=== PATIENT | female | born 1935 | race Caucasian/White ===

== ENCOUNTER → 2016-11-28 | Outpatient (CLI) | payer MEDICARE ==
--- NOTE | 2016-11-28 15:24 | Diagnostic Imaging Report ---
EXAMINATION: PA and lateral views of the chest. INDICATION: Weakness. COMPARISON: 11/23/2016. FINDINGS: The lungs appear clear. The heart size is in the upper limits of normal. No effusion or pneumothorax. The mediastinum and kenneth appear unremarkable. IMPRESSION: Borderline cardiac size. No acute process. Dictated by: Dictated on workstation # [id number]
== END ==
LOC: RAD 14:51
PROVIDERS: ATTEND Specialist
DX: R53.1 Weakness (principal)
CPT/HCPCS: 71020

== ENCOUNTER 2017-04-18 13:34 | Outpatient (RCR) | payer MEDICARE | END 2017-04-19 | disposition home or self-care (01) | PROVIDERS: ATTEND Specialist | DX: M54.9 Dorsalgia, unspecified (principal) ==

== ENCOUNTER 2017-05-05 13:40 | Outpatient (RCR) | payer MEDICARE | END 2017-05-05 14:52 | disposition home or self-care (01) | PROVIDERS: ATTEND Specialist | DX: M54.9 Dorsalgia, unspecified (principal) ==

== ENCOUNTER 2018-10-15 13:45 | Outpatient (RCR) | payer MEDICARE | END 2018-10-22 | disposition home or self-care (01) | PROVIDERS: ATTEND Family Medicine | DX: M25.551 Pain in right hip (principal); M25.552 Pain in left hip; M25.671 Stiffness of right ankle, not elsewhere classified; M25.672 Stiffness of left ankle, not elsewhere classified; E03.9 Hypothyroidism, unspecified; I10 Essential (primary) hypertension ==

== ENCOUNTER → 2018-11-23 | Outpatient (CLI) | payer MEDICARE ==
--- NOTE | 2018-11-23 16:47 | Diagnostic Imaging Report ---
INDICATION: Headache. Dizziness. Hypertension. TECHNIQUE: Routine non contrast-enhanced axial images were obtained from the skull base to the vertex. Auto Exposure Controls were utilized during the CT exam to meet ALARA standards for radiation dose reduction COMPARISON: None. FINDINGS: The ventricles and cortical sulci are diffusely prominent, compatible with age-related volume loss. There are confluent areas of abnormal, low attenuation in the periventricular white matter. This is consistent with small vessel ischemic changes; age-indeterminate. There is no prior study available for comparison. There is no midline shift or mass effect. No acute intra-axial hemorrhage is seen. There are no abnormal areas of increased or decreased density to suggest acute hemorrhage or edema. No extra-axial masses or collections are present. The bony calvarium is intact. The visualized paranasal sinuses are unremarkable. The mastoid air cells are clear. IMPRESSION: 1. No acute intracranial abnormality. No CT evidence of mass, acute infarct or intracranial hemorrhage. 2. Small vessel ischemic changes in the periventricular and subcortical white matter; likely chronic. Dictated by: Dictated on workstation # [id number]
== END ==
LOC: RAD 16:18
PROVIDERS: ATTEND Nurse Practitioner Family
DX: S00.93XA Contusion of unspecified part of head, initial encounter (principal); I67.82 Cerebral ischemia; R90.82 White matter disease, unspecified; E03.9 Hypothyroidism, unspecified; I10 Essential (primary) hypertension; H10.45 Other chronic allergic conjunctivitis; M32.9 Systemic lupus erythematosus, unspecified; H46.9 Unspecified optic neuritis; M19.90 Unspecified osteoarthritis, unspecified site
CPT/HCPCS: 70450

== ENCOUNTER 2018-12-04 13:00 | Outpatient (RCR) | payer MEDICARE | END 2018-12-04 16:19 | disposition home or self-care (01) | PROVIDERS: ATTEND Family Medicine | DX: M25.551 Pain in right hip (principal); M25.552 Pain in left hip; M25.671 Stiffness of right ankle, not elsewhere classified; M25.672 Stiffness of left ankle, not elsewhere classified; E03.9 Hypothyroidism, unspecified; I10 Essential (primary) hypertension ==

== ENCOUNTER 2019-05-29 15:21 | Outpatient (RCR) | payer MEDICARE ==
[2019-06-25] MEDS ORDERED: ALPR0.5T PO (15:58)
[2019-06-25] MEDS ORDERED: LOSA1TAB26 PO (15:58)
[2019-06-25] MEDS ORDERED: ASCO500C17 PO (15:58)
[2019-06-25] MEDS ORDERED: ASPI-808 PO (15:58)
[2019-06-25] MEDS ORDERED: HYDR200T46 PO (15:58)
[2019-06-25] MEDS ORDERED: CHOL200059 PO (15:58)
[2019-06-25] MEDS ORDERED: OMEP20TA7 PO (15:58)
[2019-06-25] MEDS ORDERED: UBID100C17 PO (15:58)
== END 2019-08-27 | disposition home or self-care (01) ==
LOC: LAB 15:21
PROVIDERS: ATTEND Surgery
DX: Z01.89 Encounter for other specified special examinations (principal)
CPT/HCPCS: 82274; 87015; 87045; 87046; 87324; 87328; 87329; 87449; 87899

== ENCOUNTER 2019-06-25 05:53 | Outpatient (CLI) | payer MEDICARE ==
[~2019-06-25] VITALS: Ht 152.4 cm; Wt 81.4 kg
[2019-06-25] MEDS ORDERED: ALPR0.5T PO (15:58)
[2019-06-25] MEDS ORDERED: LOSA1TAB26 PO (15:58)
[2019-06-25] MEDS ORDERED: CHOL200059 PO (15:58)
[2019-06-25] MEDS ORDERED: UBID100C17 PO (15:58)
[2019-06-25] MEDS ORDERED: HYDR200T46 PO (15:58)
[2019-06-25] MEDS ORDERED: OMEP20TA7 PO (15:58)
[2019-06-25] MEDS ORDERED: ASCO500C17 PO (15:58)
[2019-06-25] MEDS ORDERED: ASPI-808 PO (15:58)
== END 2019-06-25 16:02 | disposition home or self-care (01) ==
LOC: PREOP 05:53
PROVIDERS: ATTEND Surgery
DX: Z01.818 Encounter for other preprocedural examination (principal)

== ENCOUNTER → 2019-10-29 | Outpatient (CLI) | payer MEDICARE ==
[~2019-10-29] MED LIST: ALPR0.5T PO; ASCO500C17 PO; ASPI-808 PO; CHOL200059 PO; HYDR200T46 PO; LOSA1TAB26 PO; OMEP20TA7 PO; UBID100C17 PO
--- NOTE | 2019-10-29 08:47 | Diagnostic Imaging Report ---
INDICATION: Postmenopausal state. COMPARISON: None available FINDINGS: AP Spine L1-L4: [BMD (g/cm2): 1.159] [T-Score: -0.3] [Z-Score: 1.2] [BMD Previous: NA] [BMD % Change: NA] LT Hip Neck: [BMD (g/cm2): 0.755] [T-Score: -2.0] [Z-Score: 0.0] LT Hip Total: [BMD (g/cm2):0.912] [T-Score:-0.8] [Z-Score: 1.1] [BMD Previous: NA] [BMD % Change: NA] RT Hip Neck: [BMD (g/cm2):0.751] [T-Score:-2.1] [Z-Score:0.0] RT Hip Total: [BMD (g/cm2):0.894] [T-score:-0.9] [Z-Score:1.0] [BMD Previous:NA] [BMD % Change:NA] *Indicates significant change from prior examination based on 95% confidence level. World Health Organization criteria for BMD interpretation classify patients as Normal (T-score at or above -1.0), Osteopenic (T-score between -1.0 and -2.5) or Osteoporotic (T-score at or below -2.5). LIMITATIONS AND MODIFICATION: None. FRAX score: 10 year probability of a major osteoporotic fracture: 23% 10 year probability of hip fracture: 9.9% IMPRESSION: 1. Osteopenia (Low bone mass). 2. No prior examination is available for comparison. 3. See below National Osteoporosis Foundation guidelines on when to potentially initiate pharmacologic therapy. Based on the National Osteoporosis Foundation Guidelines, pharmacologic treatment should be initiated in any of the following, unless clinical conditions suggest otherwise: * Any patient with prior fragility fracture of the hip or vertebrae. A spine fracture indicates 5X risk for subsequent spine fracture and 2X risk for subsequent hip fracture. * Osteoporosis (T-score <-2.5). * Postmenopausal women and men age 50 and older with low bone mass/osteopenia (T-score between -1.0 and -2.5) by DXA and 10-year major osteoporotic fracture greater than 20% or a 10-year probability of hip fracture greater than 3%. These fracture risks are supplied above in the FRAX score, if applicable. * Clinician judgement and/or patient preferences may indicate treatment for people with 10-year fracture probabilities above or below these levels. Dictated by: Dictated on workstation # [id number]
--- NOTE | 2019-10-29 10:46 | Diagnostic Imaging Report ---
PROCEDURE: US carotid duplex, bilateral. INDICATION: Left-sided weakness TECHNIQUE: Multiple real-time grayscale images were obtained over the carotid arteries in various projections bilaterally. Additional spectral analysis and color Doppler and Duplex images were also obtained. FINDINGS: Color images demonstrate mild scattered plaque formation. This is most pronounced at the level of the carotid bifurcations. Right Carotid System: Right Common Carotid Artery: Patent. There is no abnormally elevated velocity to suggest a hemodynamically significant stenosis. Right Internal Carotid Artery: Patent. There is no abnormally elevated velocity to suggest a hemodynamically significant stenosis. Right External Carotid Artery: Patent. Left Carotid System: Left Common Carotid Artery: Patent. There is no abnormally elevated velocity to suggest a hemodynamically significant stenosis. Left Internal Carotid Artery: Patent. There is no abnormally elevated velocity to suggest a hemodynamically significant stenosis. Left External Carotid Artery: Patent. Vertebral arteries: Patent and with antegrade direction of flow. DOPPLER (peak systolic velocity M/S Right Left CCA 1.01 .89 ICA Proximal .7 .7 ICA Mid .77 .84 ICA Distal .72 .86 RATIO .8 1 ECA 1.2 1 VERT .68 .42 IMPRESSION: 1. Carotid Doppler imaging demonstrates no findings to suggest a hemodynamically significant stenosis of the internal carotid arteries at this time. Parameters based on the consensus panel Ruvalcaba-Scale and Doppler ultrasound criteria published June 2003, Radiology, Volume 229. Dictated by: Dictated on workstation # [id number]
--- NOTE | 2019-10-29 10:47 | Diagnostic Imaging Report ---
INDICATION: Right upper quadrant pain. TECHNIQUE: Multiple grayscale sonographic images were obtained of the right upper quadrant of the abdomen. CORRELATION STUDY: None FINDINGS: LIVER: There is uniform echotexture within the visualized portions of the liver. There is normal, hepatopedal direction of flow within the main portal vein. Liver length 18.3 cm. GALLBLADDER: The gallbladder demonstrates no definitive shadowing gallstones. No abnormal gallbladder wall thickening or pericholecystic fluid. COMMON BILE DUCT: Upper limits normal at 7 mm. PANCREAS: Largely obscured and not well visualized. RIGHT KIDNEY: Measures 11 x 4.7 x 4.4 cm. No hydronephrosis. AORTA/IVC: Not well visualized. OTHER: None. IMPRESSION: 1. Negative appearing right upper quadrant abdominal ultrasound. Dictated by: Dictated on workstation # [id number]
== END ==
LOC: EDSTATUS 10-16 15:16 → RAD 07:49
PROVIDERS: ATTEND Family Medicine
DX: I65.29 Occlusion and stenosis of unspecified carotid artery (principal); M85.80 Other specified disorders of bone density and structure, unspecified site; R10.11 Right upper quadrant pain; Z78.0 Asymptomatic menopausal state
CPT/HCPCS: 76705; 77080; 93880

== ENCOUNTER → 2020-01-23 | Outpatient (CLI) | payer MEDICARE ==
[~2020-01-23] MED LIST changes: +CATHETER FLUSH 10 ML SYR IV PRN
--- NOTE | 2020-01-23 17:06 | Diagnostic Imaging Report ---
INDICATION: Abdominal pain. TECHNIQUE: 5.3 mCi tech 99m Choletec was given IV. One can of Ensure was given orally for fatty stimulation. FINDINGS: There is prompt uptake of isotope in the liver following injection. The gallbladder visualizes at the 30 minutes. There is flow into the small bowel. Following oral stimulation, the ejection fraction was calculated to be 19% at 48 minutes. IMPRESSION: 1. The cystic and common bile duct are patent. 2. There is hypokinesia of the gallbladder following fatty meal stimulation. Dictated by: Dictated on workstation # [id number]
== END ==
LOC: CARD 09:29
PROVIDERS: ATTEND Surgery
DX: K82.8 Other specified diseases of gallbladder (principal); R10.11 Right upper quadrant pain
CPT/HCPCS: 78227

== ENCOUNTER 2020-02-03 05:48 | Outpatient (RCR) | payer MEDICARE ==
[~2020-02-03] VITALS: Ht 154 cm; Wt 77.2 kg
[~2020-02-03 05:48] MED LIST changes: +ALEN70TA5 PO; +ASPI-586 PO; -CATHETER FLUSH 10 ML SYR IV PRN; +LEVO50TA6 PO; +LOPE2CAP PO
== END 2020-02-03 15:13 | disposition home or self-care (01) ==
LOC: PREOP 05:48
PROVIDERS: ATTEND Surgery
DX: Z01.818 Encounter for other preprocedural examination (principal); Z11.59 Encounter for screening for other viral diseases
CPT/HCPCS: 87635

== ENCOUNTER 2020-02-06 10:43 | Day surgery (SDC) | payer MEDICARE ==
[2020-02-06] VITALS (12 sets, daily range): BP systolic 153–179; BP diastolic 70–101
[~2020-02-06] VITALS: Ht 154 cm; Wt 77.2 kg
[2020-02-06] MEDS ORDERED: LACTATED RINGERS 1,000 ML IV PRN (11:12)
[2020-02-06] MEDS ORDERED: CLINDAMYCIN 600 MG/50 ML IVPB 50 ML IV ONE (11:15)
--- NOTE | 2020-02-06 11:15 | Progress Note-Pre Operative ---
Pre-Operative Progress Note H&P Reviewed The H&P was reviewed, patient examined and no changes noted. Date Seen by Provider: Feb 06, 2020 Time Seen by Provider: 11:15 Date H&P Reviewed: Feb 06, 2020 Time H&P Reviewed: 11:15 Pre-Operative Diagnosis: EPIGASTRIC ABD PAIN, BILIARY DYSKINESIA VALENTINA GUZMAN DO Feb 06, 2020 11:15
[2020-02-06] MEDS ORDERED: BUP/EPI 0.5% 1:200,000 (SENSORCAINE) 30 ML VIAL ONE (11:31)
[2020-02-06] MEDS ORDERED: IOPAMIDOL 61% 30 ML (ISOVUE 300) VIAL ONE (11:31)
[2020-02-06] MEDS ORDERED: DEXAMETHASONE 10 MG/ML (DECADRON) 1 ML VIAL ONE (11:49)
[2020-02-06] MEDS ORDERED: LIDOCAINE PF 2% 5 ML (XYLOCAINE) VIAL ONE (11:49)
[2020-02-06] MEDS ORDERED: proPOfol 200 MG/20 ML (DIPRIVAN) VIAL IV ONE (11:49)
[2020-02-06] MEDS ORDERED: ONDANSETRON 4 MG/2 ML (SDV) Z0FRAN ONE (11:49)
[2020-02-06] MEDS ORDERED: ROCURONIUM 10 MG/ML 5 ML SYRINGE IV ONE (11:49)
[2020-02-06] MEDS ORDERED: MIDAZOLAM 2 MG/2 ML (VERSED) VIAL ONE (11:50)
[2020-02-06] MEDS ORDERED: fentaNYL INJECTION 100 MCG/2 ML AMP ONE (11:50)
[2020-02-06 12:06] LABS: BASOPHILS % (AUTO) 1 % (0-10); EOSINOPHILS # (AUTO) 0.2 10^3/uL (0.0-0.3); EOSINOPHILS % (AUTO) 4 % (0-10); HEMATOCRIT 39 % (35-52); HEMOGLOBIN 13.2 G/DL (11.5-16.0); LYMPHOCYTES # (AUTO) 1.1 X 10^3 (1.0-4.0); LYMPHOCYTES % (AUTO) 22 % (12-44); MEAN CORPUSCULAR HEMOGLOBIN 32 PG (25-34); MEAN CORPUSCULAR HGB CONC 34 G/DL (32-36); MEAN CORPUSCULAR VOLUME 93 FL (80-99); MEAN PLATELET VOLUME 10.1 FL (7.4-10.4); MONOCYTES # (AUTO) 0.6 X 10^3 (0.0-1.0); MONOCYTES % (AUTO) 11 % (0-12); NEUTROPHILS # (AUTO) 3.2 X 10^3 (1.8-7.8); NEUTROPHILS % (AUTO) 62 % (42-75); PLATELET COUNT 332 10^3/uL (130-400); WHITE BLOOD COUNT 5.1 10^3/uL (4.3-11.0)
[2020-02-06] MEDS ORDERED: ONDANSETRON 4 MG/2 ML (SDV) Z0FRAN IVP PRN (12:45)
[2020-02-06] MEDS ORDERED: morphine INJ 10 MG/ML 1ML (SYR OR VIAL) IVP ONE (12:45)
[2020-02-06] MEDS ORDERED: MEPERIDINE (DEMEROL) INJ 50 MG/ML IVP ONE (12:45)
--- NOTE | 2020-02-06 13:09 | Progress Note-Post Operative ---
Post-Operative Progess Note Surgeon (s)/Automotive Manager (s) Surgeon VALENTINA GUZMAN DO Automotive Manager: Dr. Kaba to assist in retraction dissection and closure. Pre-Operative Diagnosis EPIGASTRIC ABD PAIN, BILIARY DYSKINESIA Post-Operative Diagnosis same Procedure & Operative Findings Date of Procedure 02/06/20 Procedure Performed/Findings PROCEDURE: Laparoscopic cholecystectomy with intraoperative cholangiogram. COMPLICATIONS: None. INDICATIONS: Patient with epigastric abdominal pain and workup consistent with biliary dyskinesia. She understands risks and benefits and wishes to proceed. Consent is signed and on the chart. PROCEDURE: The patient was taken to the operating suite and was prepped and draped in sterile fashion. A surgical pause was performed. Just superior to the umbilicus, a 12 mm incision was made. Dissection was taken down to the fascia, which was then scored and grasped with a Barebr and the abdomen was then entered. A 0 Vicryl suture was placed in a kskulp-ss-nxelh fashion and a Tracey trocar was placed and secured. Pneumoperitoneum was achieved. A 5mm trochar place in the subxyphoid and 2 in the right upper quadrant. The gallbladder was then grasped and elevated. The cystic duct, and cystic artery were then dissected out. Clip was placed on the distal portion of the cystic duct which was then partially transected. An arrow catheter was inserted into the duct. The cholangiogram was then performed. No filing defects and contrast made its way into the duodenum. Catheter removed. Clips were placed on proximal portion of the cystic duct and then the duct was then transected. Clips were placed along the proximal and distal portion of the cystic artery which was then transected. Hook cautery was used to dissect the gallbladder from the gallbladder fossa achieving hemostasis. The gallbladder was placed in an Endobag and removed through the 12 mm trocar site. The abdomen was then reinspected. Small amount of bleeding on liver bed that was controlled with cautery and then Surgicel was placed in gallbladder fossa. Copious amounts of irrigation were used to irrigate the abdomen and there were no signs of active bleeding. Hemostasis had been achieved. The 12 mm fascial defect was then closed with 0 Vicryl suture that had been placed in a klffwp-zz-oqeze fashion. The abdomen was then desufflated, the trocars were removed. The abdomen was then washed and dried. The skin was then closed using 4-0 Monocryl in a subcuticular fashion. The abdomen was washed and dried and Skin Affix was place over incisions. Patient tolerated the procedure well without any complications and was taken to the recovery room in stable condition. Anesthesia Type general Estimated Blood Loss Estimated blood loss (mL): minimal Specimens/Packing Specimens Removed gallbladder Packing: Surgicel VALENTINA GUZMAN DO Feb 06, 2020 13:09
[2020-02-06] MEDS ORDERED: TRM50T PO (13:11)
--- NOTE | 2020-02-06 13:11 | Discharge Inst-Simple/Standard ---
Discharge Inst-Standard Discharge Medications New, Converted or Re-Newed RX: RX on Chart Patient Instructions/Follow Up Plan of Care/Instructions/FU: 2 weeks Chapis Activity as Tolerated: No Discharge Diet: Regular Diet Other Inst to Patient Follow up Appt: Make appointment for 2 weeks. Instructions: No lifting greater than 10 pounds. No strenuous activity. May shower in 24 hours, no tub bath or soaking. Use incentive spirometer at home as directed. No Smoking Skin/Wound Care: You have special glue over incision, it will fall off on it's own. Symptoms to Report: Appetite Changes, Extremity Discoloration, Numbness/Tingling, Swelling Increased, Bleeding Excessive, Eyesight Changes, Pain Increased, Urine Color Change, Constipation(Persistent), Fever over 101 degree F, Pain/Pressure in ches t, Urinating Difficulty, Cough Up/Vomit Blood, Heart Beat Irreg/Pounding, Pain/Pressure in jaw, Vaginal Bleeding Increase, Cramps in feet or legs, Lightheadedness, Pain/Pressure in shoulder, Diarrhea(Persistent), Memory Changes Suddenly, Questions/Concerns, Weight gain consecutive days, Dizziness/Fainting, Nausea/Vomiting, Shortness of Breath, Weight gain over 2 pounds. If eyes or skin turn yellow notify physician. If questions or concerns contact your physician Or seek help at emergency department. VALENTINA GUZMAN DO Feb 06, 2020 13:11
[2020-02-06] MEDS ORDERED: LABETALOL HCL 20 MG/4 ML VIAL ONE (13:23)
[2020-02-06] MEDS ORDERED: GLYCOPYRROLATE 0.2 MG/ML (ROBINUL) 2 ML VIAL ONE (13:29)
[2020-02-06] MEDS ORDERED: NEOSTIGMINE 3 MG/3 ML VIAL ONE (13:29)
--- NOTE | 2020-02-06 14:02 | Anesthesia-General Post-Op ---
General Patient Condition Mental Status/LOC: Same as Preop Cardiovascular: Satisfactory Nausea/Vomiting: Absent Respiratory: Satisfactory Pain: Controlled Complications: Absent Post Op Complications Complications None Follow Up Care/Instructions Patient Instructions None needed. Anesthesia/Patient Condition Patient Condition Patient is doing well, C/O some abd pain which is to be expected, stable vital signs, no apparent adverse anesthesia problems. She was hypertensive in the PACU and Labetalol was given, and BP is now back at her baseline. NBA DAVID DO Feb 06, 2020 14:02
--- NOTE | 2020-02-06 14:59 | Diagnostic Imaging Report ---
Indication: Fluoroscopy for intraoperative cholangiogram. Fluoroscopy was provided in the OR during intraoperative cholangiogram. 10 seconds of fluoroscopic time was utilized. Contrast is noted being injected via the cystic duct remnant. The extra hepatic bile duct is dilated. No filling defects are seen to suggest retained stone. Contrast flows into the duodenum. IMPRESSION: Fluoroscopy during intraoperative cholangiogram.. Dictated by: Dictated on workstation # [id number]
== END 2020-02-06 15:50 | disposition home or self-care (01) ==
LOC: SDC 10:43
PROVIDERS: ATTEND Surgery
DX: K81.2 Acute cholecystitis with chronic cholecystitis (principal); K82.8 Other specified diseases of gallbladder; I10 Essential (primary) hypertension; K21.9 Gastro-esophageal reflux disease without esophagitis; E03.9 Hypothyroidism, unspecified; M06.9 Rheumatoid arthritis, unspecified; Z79.82 Long term (current) use of aspirin; Z79.899 Other long term (current) drug therapy; Z88.0 Allergy status to penicillin; Z88.5 Allergy status to narcotic agent; Z91.010 Allergy to peanuts; Z88.2 Allergy status to sulfonamides; Z90.722 Acquired absence of ovaries, bilateral; Z90.710 Acquired absence of both cervix and uterus; Z80.9 Family history of malignant neoplasm, unspecified; Z83.3 Family history of diabetes mellitus; Z82.49 Family history of ischemic heart disease and other diseases of the circulatory system
CPT/HCPCS: 36415; 76000; 85025; 87081; 88304; 94664

== ENCOUNTER → 2020-11-10 | Outpatient (CLI) | payer MEDICARE ==
[~2020-11-10] MED LIST changes: -ALEN70TA5 PO; +ALEN70TA80 PO; +TRM50T PO
--- NOTE | 2020-11-10 12:55 | Diagnostic Imaging Report ---
PROCEDURE: MR imaging of the brain without contrast. TECHNIQUE: Multiplanar, multisequence MR imaging of the brain was performed without contrast. INDICATION: Dizziness. COMPARISON: No prior studies are available for comparison. FINDINGS: The ventricles and sulci are consistent with the patient's age. There is periventricular and subcortical white matter signal abnormalities noted, consistent with chronic microvascular ischemia. No diffusion restriction is identified to suggest acute ischemia. The normal expected flow-voids within the carotid siphons are seen. There is no midline shift or sulcal effacement. No acute intra-axial or extra-axial hemorrhage is detected. The corpus callosum is unremarkable. The sella and parasellar structures are unremarkable. IMPRESSION: Changes of chronic microvascular ischemia. No acute intracranial process is detected. Dictated by: Dictated on workstation # [id number]
--- NOTE | 2020-11-10 14:40 | Diagnostic Imaging Report ---
PROCEDURE: MR imaging cervical spine without contrast. TECHNIQUE: Multiplanar, multisequence MR imaging of the cervical spine was performed without contrast. DATE: November 10, 2020. COMPARISON: MRI cervical spine October 06, 2006. INDICATION: 84-year-old female, neck pain extending down the right upper extremity. FINDINGS: There is normal cervical spine alignment. There is no evidence of a diffuse marrow infiltrating or a replacing process. There is no identified focal concerning bone lesion. There is severe disc height loss at C5-C6 and moderate to severe disc height loss at C6-C7. There are very mild adjacent degenerative-related endplate changes. There is no identified abnormal signal in the cervical spinal cord. There is no disc dessication. C2-C3: There is no disc bulge. The uncovertebral and facet joints are unremarkable. There is no foraminal narrowing. There is no spinal canal stenosis. C3-C4: There is no disc bulge. The uncovertebral and facet joints are unremarkable. There is no foraminal narrowing. There is no spinal canal stenosis. C4-C5: There is a small posterior disc osteophyte complex. The uncovertebral and facet joints are unremarkable. There is no foraminal narrowing. There is no spinal canal stenosis. C5-C6: There is no disc bulge. The uncovertebral and facet joints are unremarkable. There is no foraminal narrowing. There is no spinal canal stenosis. C6-C7: There is a small posterior disc osteophyte complex. There are right greater than left uncovertebral degenerative changes. There is mild bilateral foraminal narrowing. There is no spinal canal stenosis. C7-T1: There is no disc bulge. The uncovertebral and facet joints are unremarkable. There is no foraminal narrowing. There is no spinal canal stenosis. IMPRESSION: 1. Disc and uncovertebral degenerative changes most notable at C6-C7 with mild bilateral foraminal narrowing at this level. Additional degenerative changes as described above. 2. No abnormal signal in the cervical spinal cord. Dictated by: Dictated on workstation # [id number]
== END ==
LOC: RAD 10:17
PROVIDERS: ATTEND Family Medicine
DX: M47.812 Spondylosis without myelopathy or radiculopathy, cervical region (principal); M50.323 Other cervical disc degeneration at C6-C7 level; M50.322 Other cervical disc degeneration at C5-C6 level; M48.02 Spinal stenosis, cervical region; M25.78 Osteophyte, vertebrae; R42 Dizziness and giddiness
CPT/HCPCS: 70551; 72141

== ENCOUNTER → 2020-12-08 | Outpatient (CLI) | payer MEDICARE ==
--- NOTE | 2020-12-08 13:21 | Diagnostic Imaging Report ---
EXAMINATION: CT Abdomen without intravenous contrast. TECHNIQUE: Multiple contiguous axial images were obtained through the abdomen without the administration of intravenous contrast. All CT scans use one or more of the following dose optimizing techniques: automated exposure control, MA and/or KvP adjustment based on a patient size and exam type, or iterative reconstruction. HISTORY: Diarrhea, right upper quadrant pain. COMPARISON: None available. FINDINGS: Limited views of the lower thorax show coronary artery calcifications. There is a tiny hiatal hernia. The liver is normal without focal lesion. There is no biliary ductal dilation. Gallbladder is absent. Pancreas is normal. Spleen is normal. Adrenal glands are normal. The kidneys are normal. There is no hydronephrosis. Visualized bowel is normal in caliber without obstruction or inflammation. No free fluid or air. No abdominal lymphadenopathy. Aorta is normal in caliber without aneurysm. There are no suspicious osseous lesions. IMPRESSION: 1. No acute abnormality in the abdomen. Dictated by: Dictated on workstation # [id number]
== END ==
LOC: RAD 12:10
PROVIDERS: ATTEND Nurse Practitioner Family
DX: R19.7 Diarrhea, unspecified (principal); R10.11 Right upper quadrant pain
CPT/HCPCS: 74150

== ENCOUNTER 2021-01-13 11:50 | Outpatient (RCR) | payer MEDICARE | END 2021-03-09 | disposition home or self-care (01) | PROVIDERS: ATTEND Family Medicine | DX: M54.12 Radiculopathy, cervical region (principal); M62.81 Muscle weakness (generalized); R42 Dizziness and giddiness ==

== ENCOUNTER 2021-04-23 12:32 | Outpatient (CLI) | payer MEDICARE ==
[~2021-04-23] VITALS: Ht 157.5 cm; Wt 72.0 kg
[2021-04-23 12:30] VITALS: BP 107/86
[2021-04-23] MEDS ORDERED: diphenhydrAMINE 50 MG/ML INJ (BENADRYL) IV PRN (12:45)
[2021-04-23] MEDS ORDERED: EPINEPHrine INJECTION 1 MG/ML AMP IM PRN (12:45)
[2021-04-23] MEDS ORDERED: ONDANSETRON 4 MG/2 ML (SDV) Z0FRAN IV PRN (13:00)
[2021-04-23] MEDS ORDERED: CASIRIVIMAB/IMDEVIMAB 1,200 MG in NS (IVPB) 250 ML IV ONE (13:00)
[2021-04-23] MEDS ORDERED: ACETAMINOPHEN 500 MG TAB (TYLENOL) PO PRN (13:00)
[2021-04-23 13:56] VITALS: BP 122/57
== END 2021-04-23 14:49 | disposition home or self-care (01) ==
LOC: INFUSION 12:32
PROVIDERS: ATTEND Physician Assistant
DX: Z23 Encounter for immunization (principal); U07.1 COVID-19

== ENCOUNTER → 2021-06-22 | Outpatient (CLI) | payer MEDICARE ==
--- NOTE | 2021-06-22 16:27 | Diagnostic Imaging Report ---
PROCEDURE: US Renal Bilateral. TECHNIQUE: Multiple real-time grayscale images were obtained over the kidneys in various projections bilaterally. INDICATION: Kidney failure and dehydration. FINDINGS: Right kidney measures 9.1 x 4.3 x 3.9 cm and the left kidney measures 8.9 x 5.1 x 4.2 cm. Cortical thickness and echogenicity appears normal. No calculi are seen. There is no hydronephrosis. Bladder is partially filled. The right ureteral jet was visualized. Left ureteral jet was not visualized. IMPRESSION: Unremarkable renal ultrasound. Dictated by: Dictated on workstation # [id number]
== END ==
LOC: RAD 15:06
PROVIDERS: ATTEND Nurse Practitioner Family
DX: N17.8 Other acute kidney failure (principal); E86.0 Dehydration
CPT/HCPCS: 76770

== ENCOUNTER 2021-08-04 13:44 | Outpatient (RCR) | payer MEDICARE | END 2021-08-04 16:34 | disposition home or self-care (01) | PROVIDERS: ATTEND Family Medicine | DX: R26.89 Other abnormalities of gait and mobility (principal); R53.1 Weakness ==

== ENCOUNTER → 2022-02-07 | Outpatient (CLI) | payer MEDICARE ==
[~2022-02-07] MED LIST changes: +OMEP20TA56 PO; -OMEP20TA7 PO
--- NOTE | 2022-02-07 13:23 | Diagnostic Imaging Report ---
PROCEDURE: US Renal Bilateral. TECHNIQUE: Multiple real-time grayscale images were obtained over the kidneys in various projections bilaterally. INDICATION: Chronic kidney disease. Right kidney measures 9.7 x 3.8 x 4.1 cm. The left kidney measures 9.8 x 4.8 x 4.6 cm. There is a rounded area of hypoechogenicity right kidney approximately 17 mm in size, perhaps a small cyst. There does appear to be some cortical thinning bilaterally. No calculi or hydronephrosis is detected. Prevoid bladder volume is 45 mL. No post void residual bladder volume was detected. IMPRESSION: 1. Bilateral cortical thinning with probable small cyst right kidney. There is no hydronephrosis. Dictated by: Dictated on workstation # [id number]
--- NOTE | 2022-02-07 13:24 | Diagnostic Imaging Report ---
PROCEDURE: US Venous Lower Ext [place]. TECHNIQUE: Multiple real-time grayscale images were obtained over the lower extremities in various projections, bilaterally. Additional duplex Doppler and color Doppler images were also obtained. INDICATION: Lower extremity edema. There is no evidence of right or left lower extremity DVT. Both lower extremity deep venous systems demonstrate normal compressibility with normal response to augmentation and Valsalva. No fluid collection or mass is detected. IMPRESSION: No evidence of right or left lower extremity DVT. Dictated by: Dictated on workstation # [id number]
== END ==
LOC: RAD 11:00
PROVIDERS: ATTEND Internal Medicine Nephrology
DX: N18.32 Chronic kidney disease, stage 3b (principal); D63.1 Anemia in chronic kidney disease; N17.8 Other acute kidney failure; E03.8 Other specified hypothyroidism; R60.0 Localized edema
CPT/HCPCS: 76770; 93970

== ENCOUNTER → 2022-03-08 | Outpatient (CLI) | payer MEDICARE | LOC: CARD 13:00 | PROVIDERS: ATTEND Internal Medicine Cardiovascular Disease | DX: I34.0 Nonrheumatic mitral (valve) insufficiency (principal); I50.33 Acute on chronic diastolic (congestive) heart failure | CPT/HCPCS: 93225; 93226; 93306 ==

== ENCOUNTER 2022-06-14 10:30 | Outpatient (RCR) | payer MEDICARE | END 2022-06-20 | disposition home or self-care (01) | PROVIDERS: ATTEND Registered Nurse Critical Care Medicine | DX: R53.1 Weakness (principal); R29.6 Repeated falls; I10 Essential (primary) hypertension ==

== ENCOUNTER 2022-07-12 11:14 | Outpatient (RCR) | payer MEDICARE | END 2022-07-20 | disposition home or self-care (01) | PROVIDERS: ATTEND Registered Nurse Critical Care Medicine | DX: N39.0 Urinary tract infection, site not specified (principal); I12.9 Hypertensive chronic kidney disease with stage 1 through stage 4 chronic kidney disease, or unspecified chronic kidney disease; N18.9 Chronic kidney disease, unspecified; R60.0 Localized edema; M62.81 Muscle weakness (generalized); R29.6 Repeated falls; Z71.89 Other specified counseling; E03.9 Hypothyroidism, unspecified ==

== ENCOUNTER → 2022-07-28 | Outpatient (CLI) | payer MEDICARE ==
--- NOTE | 2022-07-28 14:06 | Diagnostic Imaging Report ---
PROCEDURE: CT head without contrast. TECHNIQUE: Multiple contiguous axial images were obtained through the brain without the use of intravenous contrast. Auto Exposure Controls were utilized during the CT exam to meet ALARA standards for radiation dose reduction. INDICATION: Fall and head injury. COMPARISON: Correlation is made with prior head CT from 11/23/2018. FINDINGS: The ventricles and sulci are appropriate for the patient's age. No sulcal effacement is identified. There is no midline shift. No acute intra-axial or extra-axial hemorrhage is detected. Moderate periventricular low attenuation is noted, consistent with senescent change. Cisterns are patent. Visualized paranasal sinuses are clear. IMPRESSION: No acute intracranial process is detected. Dictated by: Dictated on workstation # [id number]
--- NOTE | 2022-07-28 14:19 | Diagnostic Imaging Report ---
T-SPINE 3V-AP, LAT, SWIMMERS INDICATION: Back pain after fall COMPARISON: None available. TECHNIQUE: 3 views of the thoracic spine FINDINGS: Normal alignment of the thoracic spine. No acute compression deformity is appreciated. Intervertebral disc space heights are preserved. IMPRESSION: No acute compression fracture in the thoracic spine. Dictated by: Dictated on workstation # [id number]
--- NOTE | 2022-07-28 14:19 | Diagnostic Imaging Report ---
CERVICAL SPINE 3 VIEWS OR LESS INDICATION: Cervical pain COMPARISON: None available. TECHNIQUE: 3 views of cervical spine FINDINGS: Normal alignment cervical spine. No spondylolisthesis. No fracture. Near-complete loss of intervertebral space at C5-C6 with some degenerative ankylosis likely present across the intervertebral space. No prevertebral soft tissue swelling. Lateral masses of C1 and C2 are normal in alignment. IMPRESSION: 1. No acute fracture in cervical spine by radiography. 2. Focal advanced degenerative disc disease at C5-C6. Dictated by: Dictated on workstation # [id number]
== END ==
LOC: RAD 13:15
PROVIDERS: ATTEND Registered Nurse Critical Care Medicine
DX: S00.03XA Contusion of scalp, initial encounter (principal); M50.322 Other cervical disc degeneration at C5-C6 level; M54.6 Pain in thoracic spine; W18.39XA Other fall on same level, initial encounter; Y92.098 Other place in other non-institutional residence as the place of occurrence of the external cause; I12.9 Hypertensive chronic kidney disease with stage 1 through stage 4 chronic kidney disease, or unspecified chronic kidney disease; N18.9 Chronic kidney disease, unspecified; R60.0 Localized edema; M62.81 Muscle weakness (generalized); Z71.89 Other specified counseling; R26.9 Unspecified abnormalities of gait and mobility
CPT/HCPCS: 70450; 72040; 72072

== ENCOUNTER 2022-08-09 11:23 | Outpatient (RCR) | payer MEDICARE | END 2022-08-20 | disposition home or self-care (01) | PROVIDERS: ATTEND Registered Nurse Critical Care Medicine | DX: N39.0 Urinary tract infection, site not specified (principal); I12.9 Hypertensive chronic kidney disease with stage 1 through stage 4 chronic kidney disease, or unspecified chronic kidney disease; N18.9 Chronic kidney disease, unspecified; R60.0 Localized edema; M62.81 Muscle weakness (generalized); R29.6 Repeated falls; Z71.89 Other specified counseling; E03.9 Hypothyroidism, unspecified ==

== ENCOUNTER 2022-10-17 13:30 | Outpatient (RCR) | payer MEDICARE | END 2022-10-18 | disposition home or self-care (01) | PROVIDERS: ATTEND Registered Nurse Critical Care Medicine | DX: N39.0 Urinary tract infection, site not specified (principal); I13.0 Hypertensive heart and chronic kidney disease with heart failure and stage 1 through stage 4 chronic kidney disease, or unspecified chronic kidney disease; N18.9 Chronic kidney disease, unspecified; I50.9 Heart failure, unspecified; M62.81 Muscle weakness (generalized); Z71.89 Other specified counseling; E03.9 Hypothyroidism, unspecified; R29.6 Repeated falls; R60.0 Localized edema ==

== ENCOUNTER 2022-11-04 14:58 | Outpatient (RCR) | payer MEDICARE ==
[2022-11-07] MEDS ORDERED: ONDA4TAB11 PO (15:23)
[2022-11-07] MEDS ORDERED: TRM50T PO (15:23)
== END 2022-11-08 13:54 | disposition home or self-care (01) ==
PROVIDERS: ATTEND Registered Nurse Critical Care Medicine
DX: N39.0 Urinary tract infection, site not specified (principal); I13.0 Hypertensive heart and chronic kidney disease with heart failure and stage 1 through stage 4 chronic kidney disease, or unspecified chronic kidney disease; N18.9 Chronic kidney disease, unspecified; I50.9 Heart failure, unspecified; M62.81 Muscle weakness (generalized); Z71.89 Other specified counseling; E03.9 Hypothyroidism, unspecified; R29.6 Repeated falls; R60.0 Localized edema

== ENCOUNTER 2022-11-07 10:56 | Emergency (ER) | payer MEDICARE ==
[~2022-11-07] VITALS: Ht 157.4 cm; Wt 72.1 kg
[2022-11-07] MEDS ORDERED: fentaNYL INJ 100 MCG/2 ML AMP IVP STA (12:30)
[2022-11-07] MEDS ORDERED: LACTATED RINGERS 1,000 ML IV ONE (12:30)
[2022-11-07 13:00] LABS: BASOPHILS % (AUTO) 1 % (0-10); EOSINOPHILS # (AUTO) 0.1 10^3/uL (0.0-0.3); EOSINOPHILS % (AUTO) 2 % (0-10); HEMATOCRIT 37 % (35-52); HEMOGLOBIN 12.2 g/dL (11.5-16.0); LYMPHOCYTES # (AUTO) 1.3 10^3/uL (1.0-4.0); LYMPHOCYTES % (AUTO) 22 % (12-44); MEAN CORPUSCULAR HEMOGLOBIN 32 pg (25-34); MEAN CORPUSCULAR HGB CONC 33 g/dL (32-36); MEAN CORPUSCULAR VOLUME 95 fL (80-99); MEAN PLATELET VOLUME 9.6 fL (9.0-12.2); MONOCYTES # (AUTO) 0.7 10^3/uL (0.0-1.0); MONOCYTES % (AUTO) 12 % (0-12); NEUTROPHILS # (AUTO) 3.8 10^3/uL (1.8-7.8); NEUTROPHILS % (AUTO) 63 % (42-75); PLATELET COUNT 302 10^3/uL (130-400); WHITE BLOOD COUNT 6.1 10^3/uL (4.3-11.0)
[2022-11-07 13:12] LABS: ALBUMIN 3.9 GM/DL (3.2-4.5); POTASSIUM 3.4 MMOL/L (3.6-5.0)
[2022-11-07 13:13] LABS: CALCIUM 9.3 MG/DL (8.5-10.1)
[2022-11-07 13:14] LABS: TOTAL PROTEIN 7.1 GM/DL (6.4-8.2)
[2022-11-07 13:16] LABS: BILIRUBIN,TOTAL 0.6 MG/DL (0.1-1.0)
[2022-11-07 13:18] LABS: CREATININE SERUM 1.18 MG/DL (0.60-1.30)
[2022-11-07] MEDS ORDERED: IOHEXOL 350 MG/ML 100 ML (OMNIPAQUE 350) VIAL IV ONE (13:30)
[2022-11-07] MEDS ORDERED: HOLD METFORMIN - RECEIVED CONTRAST 20 ML VIAL IV SCH (13:30)
[2022-11-07] MEDS ORDERED: NS 100 ML (IVPB) BAG IV ONE (13:30)
--- NOTE | 2022-11-07 14:17 | Diagnostic Imaging Report ---
PROCEDURE: CT head and CT cervical spine without contrast. TECHNIQUE: Multiple contiguous axial images were obtained through the brain and cervical spine without the use of intravenous contrast. Sagittal and coronal reformations through the cervical spine were then performed. Auto Exposure Controls were utilized during the CT exam to meet ALARA standards for radiation dose reduction. INDICATION: Fall with injury. COMPARISON: 07/28/2022. FINDINGS: CT HEAD: The ventricles and cortical sulci are diffusely prominent, compatible with age-related volume loss. There are confluent areas of abnormal, low attenuation in the periventricular white matter. This is consistent with chronic small vessel ischemic changes. There is no midline shift or mass-effect. No acute intra-axial hemorrhage is seen. There are no abnormal areas of increased or decreased density to suggest acute hemorrhage or edema. No extra-axial masses or collections are present. The bony calvarium is intact. The visualized paranasal sinuses are unremarkable. The mastoid air cells are clear. CT CERVICAL SPINE: Static alignment of the cervical spine is maintained. There is no significant luis e or retrolisthesis. There is no evidence of jumped facets. Vertebral body heights are maintained. There is no acute fracture. No bony fragments are seen within the spinal canal. Moderate multilevel degenerative changes are noted and consistent of intervertebral disc height loss with anterior and posterior endplate osteophyte formations, greatest at C5-C6 and C6-C7. Pre and paravertebral soft tissue structures are unremarkable. Note is made of calcified carotid atherosclerosis. IMPRESSION: 1. No acute intracranial abnormality. No CT evidence of mass, acute infarct or intracranial hemorrhage. 2. Chronic small vessel ischemic changes in the deep white matter. 3. No acute fracture or dislocation of the cervical spine. Dictated by: Dictated on workstation # [id number]
--- NOTE | 2022-11-07 14:21 | Diagnostic Imaging Report ---
INDICATION: Left hip injury from a fall. EXAM: Portable chest at 1:15 PM. FINDINGS: Heart and mediastinum are normal. Lungs are clear. There are no effusions or pneumothoraces. IMPRESSION: No acute abnormalities in the chest. Dictated by: Dictated on workstation # [id number]
--- NOTE | 2022-11-07 14:22 | Diagnostic Imaging Report ---
INDICATION: Left hip injury from a fall. EXAM: AP view pelvis and 2 views of the left hip are obtained. FINDINGS: The pelvic ring is intact. Obturator rings are intact. Hip joints are well-maintained. There is no fracture or dislocation. IMPRESSION: No acute abnormality is seen in the pelvis or left hip. Dictated by: Dictated on workstation # [id number]
--- NOTE | 2022-11-07 14:23 | Diagnostic Imaging Report ---
INDICATION: Left leg pain. FINDINGS: AP and lateral views of the left femur show no fracture or dislocation. IMPRESSION: No acute abnormality is seen in the left femur. Dictated by: Dictated on workstation # [id number]
--- NOTE | 2022-11-07 14:34 | Diagnostic Imaging Report ---
PROCEDURE: CT chest, abdomen, and pelvis with contrast. TECHNIQUE: Multiple contiguous axial images were obtained through the chest, abdomen, and pelvis after the administration of intravenous contrast. Auto Exposure Controls were utilized during the CT exam to meet ALARA standards for radiation dose reduction. INDICATION: Left back and hip injury from a fall. FINDINGS: CT CHEST: There is some right apical pleural scarring. There are no infiltrates, effusions or pneumothoraces. There is aortic and coronary calcific arteriosclerosis. There are some calcified right hilar and mediastinal lymph nodes. There are no displaced rib fractures seen. IMPRESSION: No acute abnormalities seen in the chest. CT ABDOMEN AND PELVIS WITH IV CONTRAST: Liver appears normal. The gallbladder is surgically absent. Portal vein is patent. Common duct is unremarkable. There are no pancreatic masses. Spleen is not enlarged. Adrenals appear normal. Kidneys are unremarkable. There is calcific atherosclerosis of the aorta but no aneurysm. Urinary bladder is distended. Small bowel is not dilated. There is no evidence of appendicitis. Urinary bladder is distended. Uterus is surgically absent. There is no intraperitoneal free air or free fluid. There is diverticulosis of the colon without evidence of diverticulitis. There are no pelvic fractures. IMPRESSION: No acute abnormalities seen in the abdomen and pelvis. Dictated by: Dictated on workstation # [id number]
--- NOTE | 2022-11-07 14:34 | Diagnostic Imaging Report ---
PROCEDURE: CT thoracic and lumbar spine without contrast. TECHNIQUE: Multiple contiguous axial images were obtained through the thoracic and lumbar spine without the use of intravenous contrast. Sagittal and coronal reformations were then performed. All CT scans use one or more of the following dose optimizing techniques: Automated exposure control, MA and/or KvP adjustment based on a patient size and exam type, or iterative reconstruction. INDICATION: Back pain. Trauma. Fall four days ago. COMPARISON: None. FINDINGS: Normal alignment of the thoracic and lumbar spine. 10-20% height loss of the T6 superior endplate with sclerosis is likely chronic but technically age indeterminate. Vertebral body heights are otherwise preserved. [id number] scattered degenerative endplate changes. No high-grade spinal canal stenosis is evident by CT. Acute appearing minimally displaced left L1 and L2 transverse process fractures. Biapical scarring. Esophageal hiatal hernia. Cardiomegaly. Atherosclerotic calcifications in the coronary arteries. Cholecystectomy. Advanced atherosclerotic calcifications. The visualized pelvis is intact. IMPRESSION: 1. Acute appearing left L1 and L2 transverse process fractures. 2. Superior endplate height loss of T6 of 10-20% is most likely chronic but technically age indeterminate. This could be further investigated with MRI if clinically warranted. Dictated by: Dictated on workstation # [id number]
[2022-11-07 14:45] LABS: BILIRUBIN,URINE NEGATIVE (NEGATIVE); CLARITY,URINE CLEAR; COLOR,URINE YELLOW; GLUCOSE, URINE (UA) NEGATIVE (NEGATIVE); KETONES,URINE NEGATIVE (NEGATIVE); LEUKOCYTE ESTERASE ,URINE TRACE (NEGATIVE); NITRITE,URINE NEGATIVE (NEGATIVE); PROTEIN,URINE NEGATIVE (NEGATIVE)
--- NOTE | 2022-11-07 14:55 | ED Fall/Injury ---
General Chief Complaint: Hip/Pelvic Problems Stated Complaint: FALL | LT SIDE AND HIP PAIN Nursing Triage Note: Fall on night around 2200 and injured her left hip and left back. Allergies and Home Medications Allergies Coded Allergies: Penicillins (Verified Allergy, Mild, Rash, 11/07/22) Sulfa (Sulfonamide Antibiotics) (Verified Allergy, Mild, Rash, 11/07/22) hydrocodone (Verified Allergy, Mild, Vomiting, 11/07/22) peanut oil (Unverified Allergy, Mild, FROM SHOT THAT CONTAINED PEANUT OIL- BODY DIDNT ABSORB , 11/07/22) Patient Home Medication List Alendronate Sodium (Alendronate Sodium) 70 Mg Tablet, 70 MG PO WEEK, (Reported) Entered as Reported by: KAMLA STAFFORD on 01/30/20 152 Alprazolam (Xanax) 0.5 Mg Tablet, 0.75 MG PO HS PRN for ANXIETY, (Reported) Entered as Reported by: LILIAN TY on 06/25/19 155 Ascorbic Acid (Vitamin C) 500 Mg Capsule, 500 MG PO DAILY, (Reported) Entered as Reported by: LILIAN TY on 06/25/19 1558 Aspirin (Aspir 81) 81 Mg Tablet.dr, 81 MG PO DAILY, (Reported) Entered as Reported by: KAMLA STAFFORD on 01/30/20 152 Hydroxychloroquine Sulfate (Hydroxychloroquine Sulfate) 200 Mg Tablet, 200 MG PO BID, (Reported) Entered as Reported by: LILIAN TY on 06/25/19 155 Levothyroxine Sodium (Levothyroxine Sodium) 50 Mcg Tablet, 50 MCG PO DAILY, (Reported) Entered as Reported by: KAMLA STAFFORD on 01/30/20 1528 Loperamide HCl (Loperamide) 2 Mg Capsule, 2 MG PO PRN, (Reported) Entered as Reported by: KAMLA STAFFORD on 01/30/20 152 Losartan/Hydrochlorothiazide (Losartan-Hctz 100-12.5 mg Tab) 1 Each Tablet, 1 EACH PO DAILY, (Reported) Entered as Reported by: LILIAN TY on 06/25/19 155 Tramadol HCl (Tramadol HCl) 50 Mg Tablet, 50 MG PO Q4H PRN for PAIN-MODERATE (5- 7) Prescribed by: VALENTINA GUZMAN on 02/06/20 1311 Past Rtabxuc-Xoddfx-Dlqeqa Hx Patient Social History Tobacco Use?: No Use of E-Cig and/or Vaping dev: No Substance use?: No Alcohol Use?: No Pt feels they are or have been: No Immunizations Up To Date Influenza Vaccine Up-to-Date: No; Not Current First/Initial COVID19 Vaccinat: two shots Seasonal Allergies Seasonal Allergies: Yes Past Medical History Surgeries: Yes (CATARACTS) Appendectomy, Hysterectomy, Oophorectomy Respiratory: No Currently Using CPAP: No Currently Using BIPAP: No Cardiac: Yes Hypertension Neurological: No [employer]ERGROUND [employer] LOC[employer] History: Hysterectomy Sexually Transmitted Disease: No HIV/AIDS: No Genitourinary: No (bladder leaking) Gastrointestinal: Yes Gastroesophageal Reflux, Chronic Diarrhea, Gall Bladder Disease Musculoskeletal: Yes Arthritis Endocrine: Yes Hypothyroidsim HEENT: Yes (GLASSES, DENTURES) Cataract Loss of Vision: Denies Hearing Impairment: Denies Cancer: Yes Skin What Type of Treatment Did You: Surgical Intervention Psychosocial: Yes Sleep Difficulties Integumentary: No Blood Disorders: No Adverse Reaction/Blood Tranf: No (HAS HAD BLOOD WITH NO REACTION) Physical Exam Vital Signs Vital Signs - First Documented 11/07/22 11:20 Temp 37.1 Pulse 70 Resp 18 B/P (MAP) 161/89 (113) Pulse Ox 100 O2 Delivery Room Air Capillary Refill : Less Than 3 Seconds Height, Weight, BMI Height: '" Weight: lbs. oz. kg; 29.00 BMI Method: Progress/Results/Core Measures Results/Orders Lab Results Laboratory Tests Test 11/07/22 12:50 11/07/22 14:40 Range/Units White Blood Count 6.1 4.3-11.0 10^3/uL Red Blood Count 3.87 3.80-5.11 10^6/uL Hemoglobin 12.2 11.5-16.0 g/dL Hematocrit 37 35-52 % Mean Corpuscular Volume 95 80-99 fL Mean Corpuscular Hemoglobin 32 25-34 pg Mean Corpuscular Hemoglobin Concent 33 32-36 g/dL Red Cell Distribution Width 13.8 10.0-14.5 % Platelet Count 302 130-400 10^3/uL Mean Platelet Volume 9.6 9.0-12.2 fL Immature Granulocyte % (Auto) 0 % Neutrophils (%) (Auto) 63 42-75 % Lymphocytes (%) (Auto) 22 12-44 % Monocytes (%) (Auto) 12 0-12 % Eosinophils (%) (Auto) 2 0-10 % Basophils (%) (Auto) 1 0-10 % Neutrophils # (Auto) 3.8 1.8-7.8 10^3/uL Lymphocytes # (Auto) 1.3 1.0-4.0 10^3/uL Monocytes # (Auto) 0.7 0.0-1.0 10^3/uL Eosinophils # (Auto) 0.1 0.0-0.3 10^3/uL Basophils # (Auto) 0.0 0.0-0.1 10^3/uL Immature Granulocyte # (Auto) 0.0 0.0-0.1 10^3/uL Sodium Level 140 135-145 MMOL/L Potassium Level 3.4 L 3.6-5.0 MMOL/L Chloride Level 107 98-107 MMOL/L Carbon Dioxide Level 22 21-32 MMOL/L Anion Gap 11 5-14 MMOL/L Blood Urea Nitrogen 18 7-18 MG/DL Creatinine 1.18 0.60-1.30 MG/DL Estimat Glomerular Filtration Rate 45 BUN/Creatinine Ratio 15 Glucose Level 75 70-105 MG/DL Calcium Level 9.3 8.5-10.1 MG/DL Corrected Calcium 9.4 8.5-10.1 MG/DL Magnesium Level 2.0 1.6-2.4 MG/DL Total Bilirubin 0.6 0.1-1.0 MG/DL Aspartate Amino Transf (AST/SGOT) 18 5-34 U/L Alanine Aminotransferase (ALT/SGPT) 17 0-55 U/L Alkaline Phosphatase 43 40-136 U/L Total Protein 7.1 6.4-8.2 GM/DL Albumin 3.9 3.2-4.5 GM/DL Urine Color YELLOW Urine Clarity CLEAR Urine pH 7.0 5-9 Urine Specific [place] 1.010 L 1.016-1.022 Urine Protein NEGATIVE NEGATIVE Urine Glucose (UA) NEGATIVE NEGATIVE Urine Ketones NEGATIVE NEGATIVE Urine Nitrite NEGATIVE NEGATIVE Urine Bilirubin NEGATIVE NEGATIVE Urine Urobilinogen 0.2 < = 1.0 MG/DL Urine Leukocyte Esterase TRACE H NEGATIVE Urine RBC (Auto) NEGATIVE NEGATIVE Urine RBC NONE /HPF Urine WBC 2-5 /HPF Urine Crystals PRESENT H /LPF Urine Amorphous Sediment FEW YARED PHOSPHATE H /LPF Urine Bacteria TRACE /HPF Urine Casts NONE /LPF Urine Mucus NEGATIVE /LPF Urine Culture Indicated NO My Orders Orders - JORDAN BRAGA DO Ed Iv/Invasive Line Start (11/07/22 12:05) Monitor-Rhythm Ecg Trace Only (11/07/22 12:05) Chest 1 View, Ap/Pa Only (11/07/22 12:05) Femur, Left, 2 Views (11/07/22 12:05) Pelvis With Left Hip 2-3 Views (11/07/22 12:05) Cbc With Automated Diff (11/07/22 12:05) Comprehensive Metabolic Panel (11/07/22 12:05) Magnesium (11/07/22 12:05) Ua Culture If Indicated (11/07/22 12:05) Ct Chest/Abdomen/Pelvis W (11/07/22 12:05) Ct Head/Cervical Spine Wo (11/07/22 12:05) Ct Thoracic/Lumbar Spine Wo (11/07/22 12:05) Ed Iv/Invasive Line Start (11/07/22 12:30) Lactated Ringers (Lr 1000 Ml Iv Solution (11/07/22 12:30) Fentanyl Inj (Sublimaze Injection) (11/07/22 12:30) Iohexol Injection (Omnipaque 350 Mg/Ml 1 (11/07/22 13:30) Received Contrast (Hold Metformin- Contr (11/07/22 13:30) Ns (Ivpb) (Sodium Chloride 0.9% Ivpb Bag (11/07/22 13:30) Medications Given in ED Current Medications Medications Dose Ordered Sig/Brant Route Start Time Stop Time Status Last Admin Dose Admin Iohexol 75 ml ONCE ONCE IV 11/07/22 13:30 11/07/22 13:34 DC 11/07/22 13:48 75 ML Lactated Ringer's 1,000 ml @ 0 mls/hr Q0M ONCE IV 11/07/22 12:30 11/07/22 12:31 DC 11/07/22 12:46 1,000 MLS/HR Sodium Chloride 100 ml ONCE ONCE IV 11/07/22 13:30 11/07/22 13:34 DC 11/07/22 13:48 80 ML Vital Signs/I&O 11/07/22 11:20 Temp 37.1 Pulse 70 Resp 18 B/P (MAP) 161/89 (113) Pulse Ox 100 O2 Delivery Room Air Blood Pressure Mean: 113 Departure Impression Primary Impression: Unwitnessed fall Additional Impressions: Fall from standing FRACTURES LEFT LUMBAR TRANSVERSE PROCESSES Contusion of left hip Disposition: HOME, SELF-CARE Condition: Stable Departure-Patient Inst. Decision time for Depature: 15:22 Referrals: PRIYANKA SIEGEL MD (PCP/Family) Primary Care Physician Patient Instructions: Contusion (DC), Preventing Falls in Older Adults, Vertebral Compression Fracture (DC) Add. Discharge Instructions: ALTERNATE ICE AND HEAT TO SORE AREAS AT 20 MINUTE INTERVALS. All discharge instructions reviewed with patient and/or family. Voiced understanding. Scripts Ondansetron (Ondansetron Odt) 4 Mg Tab.rapdis 4 MG PO Q4H for Nausea/Vomiting, #10 TAB Prov: JORDAN BRAGA DO 11/07/22 Tramadol HCl (Tramadol HCl) 50 Mg Tablet 50 MG PO Q6H PRN for PAIN for 3 Days, #20 TAB 0 Refills Prov: JORDAN BRAGA DO 11/07/22 JORDAN BRAGA DO Nov 07, 2022 14:55
[2022-11-07 15:06] LABS: AMORPHOUS SEDIMENT,UR FEW AMOR PHOSPHATE /LPF; BACTERIA,URINE TRACE /HPF
[2022-11-07] MEDS ORDERED: ONDA4TAB11 PO (15:23)
[2022-11-07] MEDS ORDERED: TRM50T PO (15:23)
[2022-11-07 15:55] VITALS: BP 171/79
== END 2022-11-07 15:55 | disposition home or self-care (01) ==
LOC: EDUNIT# 10:56 → ER 11:00
DX: S32.018A Other fracture of first lumbar vertebra, initial encounter for closed fracture (principal); S32.028A Other fracture of second lumbar vertebra, initial encounter for closed fracture; S70.02XA Contusion of left hip, initial encounter; Z88.5 Allergy status to narcotic agent; Z28.311 Partially vaccinated for COVID-19; W18.30XA Fall on same level, unspecified, initial encounter
CPT/HCPCS: 36415; 70450; 71045; 71260; 72125; 72128; 72131; 73552; 74177; 80053; 81000; 83735; 85025; 93041

== ENCOUNTER → 2023-03-03 | Outpatient (CLI) | payer MEDICARE ==
[~2023-03-03] MED LIST changes: -HYDR200T46 PO; +HYDR200T71 PO; +ONDA4TAB11 PO
--- NOTE | 2023-03-03 16:06 | Diagnostic Imaging Report ---
INDICATION: Bilateral lower extremity pain and edema. COMPARISON: 02/07/2022 TECHNIQUE: Duplex, abbott-scale and color-flow imaging of the bilateral lower extremity venous system was performed. FINDINGS: The common femoral vein, superficial femoral vein, profunda femoris, and popliteal veins are normal. These vessels show normal compressibility, color flow, and doppler augmentation. The deep calf veins, although not very well seen, demonstrate no distinct intraluminal thrombus. IMPRESSION: Negative venous Doppler of the bilateral lower extremities. Dictated by: Dictated on workstation # [id number]
== END ==
LOC: RAD 15:15
PROVIDERS: ATTEND Internal Medicine Nephrology
DX: R60.0 Localized edema (principal); N17.8 Other acute kidney failure; D64.9 Anemia, unspecified; E03.8 Other specified hypothyroidism; N39.42 Incontinence without sensory awareness; N30.00 Acute cystitis without hematuria; M79.605 Pain in left leg; M79.604 Pain in right leg
CPT/HCPCS: 93970

== ENCOUNTER → 2023-03-03 | Outpatient (CLI) | payer MEDICARE ==
--- NOTE | 2023-03-03 14:59 | Diagnostic Imaging Report ---
EXAMINATION: Magnetic resonance imaging of the left shoulder without contrast. DATE: March 03, 2023. COMPARISON: None. HISTORY: 87-year-old female, left shoulder pain. TECHNIQUE: Magnetic Resonance Imaging sequences were performed of the shoulder without contrast. FINDINGS: ROTATOR CUFF, LIGAMENTS, TENDONS, AND MUSCLES: The supraspinatus, infraspinatus, teres minor, and subscapularis tendons and muscles are intact. There is normal rotator cuff muscle bulk and signal. LONG HEAD OF BICEPS: The biceps labral attachment and long head of the biceps tendon is intact. The long head of the biceps tendon is normally positioned within the bicipital groove. GLENOHUMERAL JOINT: The humeral head is well positioned relative to the glenoid. The labrum is grossly intact. There is no identified paralabral cyst. The articular cartilage is grossly intact. There is no joint effusion. ACROMIOCLAVICULAR JOINT: The acromioclavicular joint is normally aligned. The coracoclavicular and coracoacromial ligaments are intact. There are no degenerative changes of the acromioclavicular joint. BONE: There is a mildly displaced fracture of the lateral third of the clavicle with adjacent marrow edema and soft tissue edema. The additional bone marrow signal is unremarkable. There is no os acromiale. There is no Hill-Sachs deformity. The bone marrow signal is within normal limits. Specifically, negative for fracture, osteomyelitis, osteonecrosis, or marrow replacing process. BURSAE AND SOFT TISSUES: The bursae and soft tissue surrounding the shoulder are unremarkable. IMPRESSION: 1. Mildly displaced fracture of the lateral third of the left clavicle with associated marrow soft tissue edema. 2. Intact rotator cuff and proximal long head of the biceps tendon. 3. Grossly intact labrum and unremarkable additional glenohumeral joint assessment. 4. Intact acromioclavicular joint. Dictated by: Dictated on workstation # [id number]
== END ==
LOC: RAD 13:25
PROVIDERS: ATTEND Internal Medicine Nephrology
DX: S40.022D Contusion of left upper arm, subsequent encounter (principal); M62.81 Muscle weakness (generalized); W01.198D Fall on same level from slipping, tripping and stumbling with subsequent striking against other object, subsequent encounter; I12.9 Hypertensive chronic kidney disease with stage 1 through stage 4 chronic kidney disease, or unspecified chronic kidney disease; N18.30 Chronic kidney disease, stage 3 unspecified; R42 Dizziness and giddiness; R60.9 Edema, unspecified; Z76.0 Encounter for issue of repeat prescription; F41.1 Generalized anxiety disorder; R60.0 Localized edema; S42.032A Displaced fracture of lateral end of left clavicle, initial encounter for closed fracture
CPT/HCPCS: 73221